=== PATIENT | male | born 1945 | race Caucasian/White ===

== ENCOUNTER 2023-07-01 12:10 | Outpatient (CLI) | payer MEDICARE | END 2023-07-01 12:11 | disposition home or self-care (01) | LOC: CSHRAD 12:10 | PROVIDERS: ATTEND Family Medicine | DX: I50.9 Heart failure, unspecified (principal); R91.8 Other nonspecific abnormal finding of lung field; J98.11 Atelectasis | CPT/HCPCS: 71046 ==

== ENCOUNTER 2024-01-07 17:19 | Outpatient (CLI) | payer MEDICARE | END 2024-01-07 17:20 | disposition home or self-care (01) | LOC: CSHRAD 17:19 | PROVIDERS: ATTEND Family Medicine | DX: R05.9 Cough, unspecified (principal); J98.4 Other disorders of lung; J90 Pleural effusion, not elsewhere classified | CPT/HCPCS: 71046 ==